=== PATIENT | female | born 1970 | race Caucasian/White ===

== ENCOUNTER 2017-06-17 08:17 | Emergency (ER) | payer BC, OTHER ==
[2017-06-17 08:24] VITALS: TEMP 98.1
[2017-06-17] MEDS ORDERED: LORazepam 2 MG/ML INJ IVP ONE (08:38)
[2017-06-17 08:59] LABS: % IMMATURE GRANULYOCYTES 0.3 % (0.0-1.1); ABSOLUTE IMMATURE GRANULOCYTES 0.03 10^3/uL (0.00-0.10); ADD DIFF? NO; ADD MORPH? NO; ADD SCAN? NO; ATYPICAL LYMPHOCYTE FLAG 0 (0-99); FRAGMENT RBC FLAG 0 (0-99); HEMOGLOBIN 14.2 g/dL (12.6-16.3); LEFT SHIFT FLG 0 (0-99); LIPEMIA HEMOLYSIS FLAG 90 (0-99); MEAN CELL HEMOGLOBIN 33.6 pg (27.9-34.1); MEAN CELL HEMOGLOBIN CONCENTR. 34.6 g/dL (32.4-36.7); MEAN CELL VOLUME 97.2 fL (81.5-99.8); MEAN PLATELET VOLUME 9.1 fL (8.7-11.7); PLATELET CLUMPS FLAG 0 (0-99); PLATELET COUNT 237 10^3/uL (150-400); RED BLOOD CELL COUNT 4.22 10^6/uL (4.18-5.33); RED CELL DISTRIBUTION WIDTH 13.2 % (11.5-15.2)
--- NOTE | 2017-06-17 08:59 | EDPHY ---
H & P Time Seen by Provider: 06/17/17 08:56 HPI/ROS: HPI: This is a 46-year-old female who presents with Chief Complaint: Anxiety Location: Quality: Anxiety Duration: Since waking up this morning Signs and Symptoms: No chest pain, no shortness of breath, denies homicidal ideation, denies hallucinations, positive insomnia, positive irritability, positive increased stressors in life. Timing: Sudden Severity: Moderate Context: Patient presents with anxiety and alcohol abuse/dependence. She reports that she has been drinking 2 bottles of wine daily. She went to rehab September of 2016 for 30 days. She admits that she has increased stress in her life and has poor coping mechanism and as a result she has been drinking heavily daily. She admits that she has not been going to AA meetings, does not have a sponsor and has not been following regularly with her therapist Ms. Medina. She reports that life is just "too much for her" but then denies suicidal ideation. Does not want her involved in her care but also reports that he supportive of her. She is concerned that she is supposed to begin her job in 3 days. Denies any history of depression. She is currently on her menses. Patient reports that she has been out of for Antabuse for nearly 3 months. Modifying Factors: Comment: ROS: Eyes: No blurred vision Respiratory: No shortness of breath, no cough Cardiovascular: No chest pain Gastrointestinal: No nausea, no vomiting no diarrhea Genitourinary: No dysuria Extremities: No myalgias Neurologic: No weakness, no numbness Skin: No rashes Hematologic: No bruising, no bleeding MEDICAL/SURGICAL HISTORY: Tonsillectomy, rectocele. Social History: . Smoking Status: Never smoked Physical Exam: CONSTITUTIONAL: Slightly anxious adult white female, pleasant cooperative, awake and alert, no obvious distress HEENT: Atraumatic and normocephalic, PERRL, EOMI. Tympanic membranes clear. . Oropharynx clear, no exudate and moist pink mucosa. Airway patent. No lymphadenopathy. No meningismus. Cardiovascular: Normal S1/S2, regular rate, regular rhythm, without murmur rub or gallop. PULMONARY/CHEST: Symmetrical and nontender. Clear to auscultation bilaterally Good air movement. No accessory muscle usage. ABDOMEN: Soft, nondistended, nontender, no rebound, no guarding, no peritoneal signs, no masses or organomegaly. No CVAT. EXTREMITIES: 2/2 pulses, no deformities, no clubbing, no cyanosis or edema. NEUROLOGICAL: no focal neuro deficits. GCS 15. PSYCH: Mood is stable, relatively good insight and judgment. No flight of ideas. No psychosis. SKIN: Warm and dry, no erythema. no rash. Good capillary refill. Constitutional: Initial Vital Signs Temperature (C) 36.7 C 06/17/17 08:20 Heart Rate 92 06/17/17 08:20 Respiratory Rate 20 06/17/17 08:20 Blood Pressure 128/110 H 06/17/17 08:20 O2 Sat (%) 96 06/17/17 08:20 O2 Delivery Mode Room Air Allergies/Adverse Reactions: Sulfa (Sulfonamide Antibiotics) Allergy (Verified 09/22/14 13:06) Home Medications: Medication Instructions Recorded Disulfiram [Antabuse 250 MG (*)] 500 mg PO DAILY #10 tab 06/17/17 Medical Decision Making ED Course/Re-evaluation: Labs, urinalysis, medications ordered. Given IV 1 mg Ativan CIWA scale = 2 No signs of suicidal ideation/homicidal ideation Psych consult and recommends discharge home with follow up with her primary care provider and therapist as well as list prescription for Antabuse 500 mg daily until she can be seen for close follow-up within the next week. Patient also given resources for the [facility] as well as [place] and a sponsor. Patient will be discharged to the safety of her . Differential Diagnosis: Depression including functional and major depression, situational depression, medication side effect, drugs and alcohol abuse. - Data Points Laboratory Results: Laboratory Results 06/17/17 08:45 06/17/17 08:45 06/17/17 06/17/17 08:45 08:45 WBC 9.36 10^3/uL 10^3/uL (3.80-9.50) RBC 4.22 10^6/uL 10^6/uL (4.18-5.33) Hgb 14.2 g/dL g/dL (12.6-16.3) Hct 41.0 % % (38.0-47.0) MCV 97.2 fL fL (81.5-99.8) MCH 33.6 pg pg (27.9-34.1) MCHC 34.6 g/dL g/dL (32.4-36.7) RDW 13.2 % % (11.5-15.2) Plt Count 237 10^3/uL 10^3/uL (150-400) MPV 9.1 fL fL (8.7-11.7) Neut % (Auto) 78.6 % H % (39.3-74.2) Lymph % (Auto) 13.7 % L % (15.0-45.0) [place] % (Auto) 6.3 % % (4.5-13.0) Eos % (Auto) 0.4 % L % (0.6-7.6) Baso % (Auto) 0.7 % % (0.3-1.7) Nucleat RBC Rel Count 0.0 % % (0.0-0.2) Absolute Neuts (auto) 7.35 10^3/uL H 10^3/uL (1.70-6.50) Absolute Lymphs (auto) 1.28 10^3/uL 10^3/uL (1.00-3.00) Absolute Monos (auto) 0.59 10^3/uL 10^3/uL (0.30-0.80) Absolute Eos (auto) 0.04 10^3/uL 10^3/uL (0.03-0.40) Absolute Basos (auto) 0.07 10^3/uL 10^3/uL (0.02-0.10) Absolute Nucleated RBC 0.00 10^3/uL 10^3/uL (0-0.01) Immature Gran % 0.3 % % (0.0-1.1) Immature Gran # 0.03 10^3/uL 10^3/uL (0.00-0.10) Sodium 142 mEq/L mEq/L (134-144) Potassium 4.2 mEq/L mEq/L (3.5-5.2) Chloride 109 mEq/L mEq/L (97-110) Carbon Dioxide 20 mEq/l L mEq/l (22-31) Anion Gap 13 mEq/L mEq/L (8-16) BUN 16 mg/dL mg/dL (7-23) Creatinine 0.9 mg/dL mg/dL (0.6-1.0) Estimated GFR > 60 Glucose 93 mg/dL mg/dL (70-100) Calcium 9.1 mg/dL mg/dL (8.5-10.4) Salicylates < 1.0 mg/dL L mg/dL (2.0-20.0) Acetaminophen < 10 mcg/mL L mcg/mL (10-30) Ethyl Alcohol < 10 mg/dL mg/dL (0-10) Medications Given: Discontinued Medications Lorazepam (Ativan Injection) 1 mg IVP EDNOW ONE Stop: 06/17/17 08:39 Last Admin: 06/17/17 08:54 Dose: 1 mg Departure - Departure Disposition: Home, Routine, Self-Care Clinical Impression: Alcohol abuse, Anxiety, Stress Condition: Fair Instructions: Alcohol Dependence (ED), Alcohol Use Disorder (ED) Additional Instructions: Please call therapist to be seen within the next 1 week. Do not drink alcohol while taking Antabuse. Please follow-up with your AA meetings and contact your sponsor immediately. Referrals: Adri Crow MD [Primary Care Provider] - 5-7 days, call for appt. Prescriptions: Disulfiram [Antabuse 250 MG (*)] 500 mg PO DAILY #10 tab
[2017-06-17 09:51] LABS: ANION GAP 13 mEq/L (8-16); CALCIUM 9.1 mg/dL (8.5-10.4); CARBON DIOXIDE 20 mEq/l (22-31); CHLORIDE 109 mEq/L (97-110); CREATININE 0.9 mg/dL (0.6-1.0); ETHANOL SERUM < 10 mg/dL (0-10); GLOMERULAR FILTRATION RATE > 60; GLUCOSE 93 mg/dL (70-100); POTASSIUM 4.2 mEq/L (3.5-5.2); SALICYLATE < 1.0 mg/dL (2.0-20.0); SODIUM 142 mEq/L (134-144)
[2017-06-17 10:23] VITALS: BP 128/82; PULSE 96; RESP 16; O2SAT 95
== END 2017-06-17 10:23 | disposition home or self-care (01) ==
DX: F10.10 Alcohol abuse, uncomplicated (principal); F43.9 Reaction to severe stress, unspecified
CPT/HCPCS: 96374; G0480; J2060